=== PATIENT | female | born 1940 | race African-American/Black ===

== ENCOUNTER → 2016-12-20 | Outpatient (CLI) | payer OTHER, BC ==
[~2016-12-20] VITALS: Ht 162.6 cm; Wt 72.6 kg
[~2016-12-20] MED LIST: BENAZEPRIL-HCT1 EA10 PO
--- NOTE | ~2016-12-20 | P ---
[facility] [place] [address] PROCEDURE REPORT Name: LINETTE HI Room #: REG [facility]#: [id number] Admission: 12/20/16 Attend Phys: Geronimo Ordoñez MD Discharge: Date of : 44 Report #: [id number] THIS REPORT FOR: //name// CC: Lisette Ordoñez BRIEF HISTORY: The patient is a 76-year-old woman with history of colon polyps, for high risk screening colonoscopy. PREOPERATIVE DIAGNOSIS: History of colon polyps. POSTOPERATIVE DIAGNOSES: 1. Colon polyps. 2. Mild sigmoid diverticulosis coli. MEDICATIONS: Deep sedation with propofol per anesthesia. SPECIMENS: 1. Polyp 60 cm. 2. Polyps times 2, hepatic flexure. 3. Polyp, cecum. 4. Polyp, proximal ascending colon. ESTIMATED BLOOD LOSS: 3 mL. PROCEDURE: Colonoscopy to cecum and terminal ileum with snare polypectomy and biopsy. FINDINGS: Prior to propofol sedation, procedure of colonoscopy discussed with the patient as well as potential risks, benefits, and complications. She indicates she understands and desires to proceed. With the patient in left lateral decubitus position, digital examination was completed, which revealed no abnormalities. Subsequently, the [employer] video colonoscope was introduced into the rectum, advanced under direct vision to the cecum. Done with minimal difficulty. The cecum was identified by the ileocecal valve and the appendiceal orifice. I was able to visualize the distal segment of terminal ileum, which was inspected and noted to be unremarkable. At that point, the scope was slowly withdrawn and careful circumferential views obtained including retroflexing the scope in the ascending colon. Upon slow withdrawal of the scope, the prep was good. The mucosa was within normal limits, normal vascular pattern, and normal light reflex. As we withdrew the scope, she was found to have a flat polyp in the cecum, it was about 3 mm in width and about 6 mm in length and removed by cold snare polypectomy and recovered. Scope was further withdrawn and in the proximal ascending colon, another flat polyp was seen. This may be a serrated adenoma, it was about 4 x 6 mm, removed by cold [facility] [address] [place] [address] PROCEDURE REPORT Name: LINETTE HI Room #: REG [facility] Karina#: [id number] Admission: 12/20/16 Attend Phys: Geronimo Ordoñez MD Discharge: Date of : 44 Report #: [id number] snare polypectomy. In addition, two diminutive polyps were seen in the hepatic flexure, removed by biopsy and a flat 4-mm polyp was seen at 60 cm and removed by biopsy forceps. Scope was further withdrawn and no additional polypoid lesions were seen. In the sigmoid colon, she was noted to have mild diverticular disease without endoscopic evidence of diverticulitis. The scope was withdrawn in the rectum. Upon retroflexion, no abnormalities were seen. Scope was withdrawn. The patient tolerated the procedure well. CONDITION OF THE PATIENT UPON DISCHARGE: Following procedure, the patient drowsy, aroused, conversant and will be discharged home when fully ambulatory. INSTRUCTIONS TO THE PATIENT AND FAMILY AT THE TIME OF DISCHARGE: The patient had 5 polyps removed today. We will follow up on the pathology. If 3 or more adenomatous, she should return in 3 years; otherwise, she should return for followup colonoscopy in 5 years and also suggest high fiber diet for her diverticular disease. Her last colonoscopy was 5 years ago. Withdrawal time from the cecum was minutes 17 seconds. <ELECTRONICALLY SIGNED> By: Geronimo Ordoñez MD 12/20/16 1200 [id number] [id number] Geronimo Ordoñez MD /nt
--- NOTE | ~2016-12-20 | S ---
[facility] [place] [address] SURGICAL PATH RPT PROCEDURE Name: KAYLIE COTA Room #: REG PRICILA Esparza.#: [id number] Admission: 12/20/16 Date of : 44 Discharge: Report #: [id number] Path Case #: [id number] PATHOLOGY REPORT COLLECTION DATE: 12/20/2016 RECEIVED DATE: 12/20/2016 SUBMITTING PHYS: Dr. Geronimo Ordoñez OTHER PHYS: Dr Lisette Ware SPECIMEN(S) RECEIVED: A.Polyp at 60cm B.Polyp at hapatic flexure C.Polyp at cecum D.Polyp at proximal ascending colon * * * * * * * * * * * * FINAL DIAGNOSIS: A. Colon, 60 cm, biopsy: - Tubular adenoma. - Negative for high grade dysplasia. B. Colon, hepatic flexure, biopsy: - Tubular adenoma. - Negative for high grade dysplasia. C. Colon, cecum, biopsy: - Tubular adenoma. - Negative for high grade dysplasia. D. Colon, proximal ascending, biopsy: - Sessile serrated adenoma. - Negative for high grade dysplasia. PATHOLOGIST: Elliott Garnett M.D. REPORT ELECTRONICALLY SIGNED BY: Elliott Garnett M.D. DATE/TIME: 12/21/2016 14:26 * * * * * * * * * * * * GROSS PATHOLOGY: A. Received in formalin labeled "Kaylie Cota, polyp at 60 cm," are 3 segments of mckeon soft tissue measuring 1.2 x 0.5 x 0.3 cm in aggregate dimensions and ranging from 0.2 to 1.1 cm in maximum dimension. The specimen is submitted entirely in cassette A1. B. Received in formalin labeled "Kaylie Cota, polyp at hepatic flexure," is a segment of mckeon soft tissue measuring 0.6 cm in maximum dimension. The specimen is submitted entirely in cassette B1. C. Received in formalin labeled "Kaylie Cota, polyp at cecum," are 3 segments of mckeon soft tissue measuring 1.5 x 0.2 x 0.3 cm in aggregate dimensions and ranging from 0.3 to 0.7 cm in maximum [address] [address] SURGICAL PATH RPT PROCEDURE Name: KAYLIE COTA Maximilian Room #: REG [facility]#: [id number] Admission: 12/20/16 Date of : 44 Discharge: Report #: [id number] Path Case #: [id number] dimension. The specimen is submitted entirely in cassette C1. D. Received in formalin labeled "Kaylie Cota, polyp at proximal ascending colon," are 3 segments of mckeon soft tissue measuring 1.3 x 0.5 x 0.4 cm in aggregate dimensions and ranging from 0.3 to 0.5 cm in maximum dimension. The specimen is submitted entirely in cassette D1. (TSD; 12/20/2016) CLINICAL HISTORY: Pre-OP DX: Hx of polyps Post-OP DX: Colon polyps, diverticulosis INITIAL CPT CODE(S): A; 44934 B; 60053 C; 27527 D; 81236 Professional services performed by [facility] at [facility] [address], [place] [address] Technical services performed by [facility] at [address] [place] [address], [address], [place] [address]. [facility] [address] [place] [address] PHONE: [phone] DIRECTOR: Jarocho Leon M.D. * * * END OF REPORT * * *
== END | disposition home or self-care (01) ==
LOC: GI 07:45
DX: Z09 Encounter for follow-up examination after completed treatment for conditions other than malignant neoplasm (principal); D12.4 Benign neoplasm of descending colon; D12.3 Benign neoplasm of transverse colon; D12.0 Benign neoplasm of cecum; D12.2 Benign neoplasm of ascending colon; K57.30 Diverticulosis of large intestine without perforation or abscess without bleeding; I10 Essential (primary) hypertension; Z90.710 Acquired absence of both cervix and uterus; Z98.41 Cataract extraction status, right eye; Z98.42 Cataract extraction status, left eye; Z98.890 Other specified postprocedural states
CPT/HCPCS: 62110; 62900